=== PATIENT | female | born 1980 | race Caucasian/White ===

== ENCOUNTER 2024-06-04 14:47 | Inpatient (IN) | payer OTHER, SELFPAY ==
[2024-06-04 10:42] VITALS: BP 111/76
[2024-06-04 11:10] LABS: Urine Albumin 2+ (Neg - Trace); Urine Bilirubin Negative (Negative); Urine Character Very Cloudy (Clear); Urine Color Yellow; Urine Glucose Negative (Negative); Urine Ketone 3+ (Negative); Urine Leukocyte 2+ (Negative); Urine Nitrite Positive (Negative); Urine Occult Blood 3+ (Negative); Urine Specific Gravity 1.025 (<1.030); Urine Urobilinogen Negative (Neg - 1+)
[2024-06-04 11:12] LABS: % Basophils 0.4 % (0-2); % Eosinophils 0.2 % (0-6); % Immature Granulocytes 0.5 % (0-0.5); % Lymphocytes 3.7 % (20.5-51.1); % Monocytes 4.4 % (1.7-9.3); % Neutrophils 90.8 % (42.2-75.2); Absolute Basophils 0.1 10^3/uL (0-0.2); Absolute Immature Granulocytes 0.1 10^3/uL (0-0.05); Absolute Lymphocytes 0.7 10^3/uL (1.2-3.4); Absolute Monocytes 0.8 10^3/uL (0.1-0.6); Absolute Neutrophils 17.5 10^3/uL (1.4-6.5); Hematocrit 40.6 % (37.0-47.0); Hemoglobin 13.5 g/dL (12.0-16.0); Mean Corp Hgb Conc. 33.3 g/dL (33.0-37.0); Mean Corpuscular Hgb 30.7 pg (27.0-31.0); Mean Corpuscular Volume 92.3 fL (81.0-99.0); Mean Platelet Volume 9.7 fL (7.4-10.4); Nucleated Red Blood Cells % 0 %; Platelet Count 286 10^3/uL (130-400); Red Cell Dist. Width 12.8 % (11.5-14.5); White Blood Cell Count 19.2 10^3/uL (4.8-10.8)
[2024-06-04 11:19] LABS: Urine Squamous Cell 0-2 /LPF (Few)
[2024-06-04 11:20] LABS: Urine Bacteria Moderate (Negative); Urine White Cell 50-60 /HPF (0-5)
[2024-06-04 11:21] LABS: Urine Mucus Moderate
[2024-06-04 11:23] LABS: ALT (SGPT) 13 U/L (0-35); AST (SGOT) 18 U/L (14-36); Albumin 4.4 g/dl (3.5-5.0); Alkaline Phosphatase 73 U/L (38-126); Blood Urea Nitrogen 9 mg/dl (7-17); Carbon Dioxide 22 mmol/L (22-30); Chloride 99 mmol/L (98-107); Glucose 108 mg/dl (70-99); Lipase 25 U/L (23-300); Potassium 3.7 mmol/L (3.5-5.1); Sodium 134 mmol/L (135-145); Total Bilirubin 0.7 mg/dl (0.2-1.3); Total Protein 7.2 g/dl (6.3-8.2); eGFR > 60.00
--- NOTE | 2024-06-04 11:37 | ED.GENMED ---
History of Present Illness
General
Chief Complaint: Flank Pain
Time Seen by Provider: 06/04/24 11:05
History of Present Illness
History of Present Illness:
Patient is a 43-year-old woman with history of kidney stones requiring stents, pyelonephritis presenting to the emergency department left-sided flank pain. Patient states that for the past day she has been having left-sided flank pain that is
similar to prior kidney stones. She states that the pain radiates down to her groin. Occasionally gets urinary symptoms at this time denies any dysuria urinary frequency or urgency. She does have some chills but no objective fevers at home. No
nausea vomiting. No diarrhea.
Past History
Past History
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
ED Past Surgical History: None and Urological (Left renal stent 08/2018)
Social History
Tobacco: Smoker (05/17 PPD)
Alcohol: Occasional
Drug: None
Living: with family
Employment: Employed
Family History
Family History: Other (Family history of breast cancer, coronary disease and kidney problems)
Phy Exam
Physical Exam
Physical Exam:
GENERAL: in no acute distress
HEENT: normocephalic, extraocular movements intact, moist oral mucosa
NECK: normal inspection
RESPIRATORY: no respiratory distress, clear to auscultation bilaterally
CARDIOVASCULAR: regular rate and rhythm
ABDOMEN/: soft, non-distended, non-tender to palpation, no rebound or guarding, left-sided CVA tenderness
EXTREMITIES: non-tender, no edema/swelling
NEUROLOGIC: awake and alert, moves all extremities
SKIN: warm
Course
Orders/Labs/Results
Orders:
Orders
06/04/24 11:01
Comprehensive Metabolic Panel Urgent
Lipase Urgent
06/04/24 11:02
Complete Blood Count/With Diff Urgent
06/04/24 11:03
Urinalysis Reflex To Culture Urgent
Date Specimen was Collected: 06/04/24
Time Specimen was Collected: 11:01
Urine Microscopic Reflex Cult Urgent
Urine Culture Urgent
JAMIE Source: U
Specimen Description:
Obtained by: Random
Date Specimen was Collected: 06/04/24
Time Specimen was Collected: 11:01
06/04/24 11:05
CT Abd/pel Without Iv Or Oral Urgent
Comment:
Reason For Exam: flank pain, kidney stone
06/04/24 11:09
Test Result ONCE
06/04/24 11:34
Ketorolac [Toradol] 15 mg IM NOW STA
06/04/24 11:36
CefTRIAXone [Rocephin] 1,000 mg IV NOW STA
06/04/24 11:37
Ketorolac [Toradol] 15 mg IV NOW STA
Lactated Ringers [Lr] 1,000 ml IV BOLUS
06/04/24 11:47
Sterile Water [Sterile Water For Injection] 20 ml .ROUTE .STK-MED
06/04/24 12:00
HCG, Serum Qualitative Screen Urgent
06/04/24 13:08
HYDROmorphone [Dilaudid] 0.25 mg IV NOW STA
06/04/24 13:15
Blood Culture Q30M
JAMIE Source: Blood/Venous
Specimen Description:
06/04/24 13:45
Blood Culture Q30M
JAMIE Source: Blood/Venous
Specimen Description:
Abnormal Lab Results
06/04/24 06/04/24 06/04/24
11:01 11:02 11:03
WBC 19.2 H 10^3/uL
(4.8-10.8)
Abs Immat Gran (auto) 0.1 H 10^3/uL
(0-0.05)
Absolute Neuts (auto) 17.5 H 10^3/uL
(1.4-6.5)
Absolute Lymphs (auto) 0.7 L 10^3/uL
(1.2-3.4)
Absolute Monos (auto) 0.8 H 10^3/uL
(0.1-0.6)
Neutrophils % 90.8 H %
(42.2-75.2)
Lymphocytes % 3.7 L %
(20.5-51.1)
Sodium 134 L mmol/L
(135-145)
Glucose 108 H mg/dl
(70-99)
Urine Ketones 3+ A
(Negative)
Ur Occult Blood Reflex 3+ A
(Negative)
Urine Nitrite (Reflex) Positive A
(Negative)
Leukocyte Esterase Rfl 2+ A
(Negative)
Urine RBC 11-15 A /HPF
(0-2)
Urine WBC (Reflex) 50-60 A /HPF
(0-5)
Urine Bacteria (Reflex) Moderate A
(Negative)
Urine Albumin (Reflex) 2+ A
(Neg - Trace)
06/04/24 11:02
06/04/24 11:01
Vital Signs
Initial and Last Documented VS:
Initial Vital Signs
Temp Pulse Resp BP Pulse Ox
97.3 F 97 16 111/76 100
06/04/24 10:42 06/04/24 10:42 06/04/24 10:42 06/04/24 10:42 06/04/24 10:42
Last Documented Vital Signs
Temp Pulse Resp BP Pulse Ox
98 F 90 16 106/61 100
06/04/24 13:15 06/04/24 13:15 06/04/24 13:15 06/04/24 13:15 06/04/24 13:15
MDM/Problems Addressed
Differential Diagnosis Includes:
Patient is a 43-year-old woman with history of kidney stones presenting to the emergency department left-sided flank pain. On arrival patient is afebrile. Exam does show left-sided CVA tenderness. Differential for this is pyelonephritis versus
kidney stone. Will proceed with blood work urine and CT scan. Will give Toradol.
*Critical Care Note
Total Time (30-74mins, 75-104mins- exclusive of procedures): Not Applicable
Update Note
Update Note:
Patient does have leukocytosis. Urine is infected. Will give IV ceftriaxone as she is sensitive to that per prior cultures. Will give a fluid bolus.
On reevaluation patient states that she still having ongoing pain. Will give Dilaudid. CT scan per my interpretation with bilateral kidney stones. Per the official read they are nonobstructing. I did notify urology and discussed with hospitalist
who excepted patient for admission.
ED Attending Note
-
Portions of this chart may have been created with voice recognition software.� Occasional wrong word or��sound alike� substitutions may have occurred due to the inherent limitations of voice recognition software.
Discharge Plan
Departure
Patient Disposition: Admit
Date of Disposition: 06/04/24
Time of Disposition: 13:22
Presentation/result/management discussed w/ accepting MD/DO: Hospitalist
Discharge Problem:
Pyelonephritis, Kidney stone
Prescriptions:
No Action
acetaminophen [Tylenol Extra Strength] 500 MG tablet
1,000 mg PO Q6HPRN PRN (Reason: mild pain)
cranberry fruit 400 MG capsule
400 mg PO DAILY
ibuprofen 400 MG tablet
400 mg PO Q6HPRN PRN (Reason: flank pain) Qty: 1 0RF
amoxicillin-pot clavulanate 1 TABLET tablet
1 tab PO Q12 Qty: 20 0RF
Referrals:
NONE,* [Family Provider] -
Interventions
Interventions:
*Risk Screen - Suicide Last Done: 06/04/24 12:07
*General Assessment Last Done: 06/04/24 12:07
*Neglect/Abuse Screening Last Done: 06/04/24 12:07
*ED COVID-19 Vaccine History Last Done: 06/04/24 12:07
PQ-Gscmxj-Vcjgnryrgj Assessment Last Done: 06/04/24 12:07
ED-Female Genitourinary Assessment Last Done: 06/04/24 12:07
Discharge Date and Time
Print Language: DANISH
[2024-06-04] MEDS: ROCEPHIN 1000 MG IV (12:00)
[2024-06-04] MEDS: TORADOL 15 MG IV (12:00)
[2024-06-04] MEDS: LR 1000 IV (12:01)
[2024-06-04 12:21] LABS: HCG, Serum Qualitative Screen Negative
[2024-06-04] MEDS: DILAUDID 0.25 MG IV (13:13)
[2024-06-04 13:15] VITALS: BP 106/61; BMI 18.8
--- NOTE | 2024-06-04 14:31 | HPS.HSE ---
Family Physician
-
Family Physician: * NONE
Chief Complaint
-
Left flank pain and chills.
History of Present Illness
Patient is a 43 years old female with prior history of complicated UTI and left sided staghorn colliculi which was removed in 2019 presents to the emergency room with few days of onset of a left inguinal pain with later developing left flank pain
and chills. Patient reports symptoms for about 3 days prior to presentation. She denies any documented fever at home. Given her prior history of complicated UTI and staghorn colliculi in the left she presented to the emergency room for further
evaluation.
Medical History
Past Medical History
Past Medical History: Reports Other (Complicated UTI with left-sided staghorn colliculi)
Past Surgical History: Reports Other (1. Left percutaneous nephrolithotomy (> 2.0 cm). 2. Left ureteral stent placement (6-Mauritanian x 24 cm JJ). 3. Left nephrostomy tube placement. 4. Left antegrade nephrostogram. 5. Left flexible nephroscopy.)
Social History
Tobacco: Former Smoker
Alcohol: Occasional
Drug: None
Living: With Family
Employment: Employed
Family History
Family History: Not pertinent
Allergies / Home Medications
Allergies reflects when Allergies were last updated in [facility].
Home Medications with original date entered in [facility]
Allergy/Medication List:
Allergies
Allergy/AdvReac Type Severity Reaction Status Date / Time
No Known Allergies Allergy Verified 12/17/20 10:02
Home Medications
cranberry fruit 450 mg tablet (cranberry) 450 mg PO DAILY 06/04/24
fluoxetine 10 mg capsule (Prozac) 10 mg PO TID 06/04/24
naproxen sodium 220 mg tablet (Aleve) 220 mg PO BIDPRN PRN mild pain 06/04/24
norethindrone 1 mg-ethinyl estradiol 20 mcg ()-iron 75 mg (7) tablet (Junel FE 06/04 (28)) 1 tab PO DAILY 06/04/24
therapeutic multivitamin 1 tab PO DAILY 06/04/24
Review of Systems
-
A 12 point ROS was completed and negative except as noted: Yes
: Reports See HPI
Physical Exam
Vital Signs
Vital Signs
Temp Pulse Resp BP Pulse Ox
98 F 90 16 106/61 100
06/04/24 13:15 06/04/24 13:15 06/04/24 13:15 06/04/24 13:15 06/04/24 13:15
Physical Exam
General: Well Developed, Well Nourished and No Apparent Distress
HEENT: NormoCephalic, Moist mucous membranes and Atraumatic
Respiratory: Clear
Cardiac: S1/S2 and Regular Rhythm; No Murmur or Rub
GI: Soft, Non Tender, Non Distended and Normal Bowel Sounds; No Organomegaly
Rectal: Deferred by Provider
Musculoskeletal: No Clubbing, No Cyanosis and No Edema
Skin: No Rash
Neuro: Nonfocal/grossly intact
Laboratory Results
-
06/04/24 11:02
06/04/24 11:01
Laboratory Results
Total Bilirubin 0.7 mg/dl (0.2-1.3) 06/04/24 11:01
AST 18 U/L (14-36) 06/04/24 11:01
ALT 13 U/L (0-35) 06/04/24 11:01
Alkaline Phosphatase 73 U/L (38-126) 06/04/24 11:01
Lipase 25 U/L (23-300) 06/04/24 11:01
Impression/Plan
-
IMPRESSION:
Complicated UTI, left pyelonephritis
Bilateral nonobstructive renal colliculi.
History of prior UTI with E. coli and staghorn colliculi status post partial staghorn colliculi removal in 2019
PLAN:
Urology consultation. Preliminary discussion and assessment by urology: With no indication for urgent intervention.
Continue IV antibiotics and IV hydration
Follow blood cultures and urine cultures.
--- NOTE | 2024-06-04 16:42 | PTCARENOTE ---
Pt arrived to unit via stretcher and ambulated to bed on 3W. Assessment and admission complete. Pt. oriented to unit, VSS, and states no further needs at this time.
[2024-06-04 17:18] VITALS: BP 102/68
[2024-06-04] MEDS: NSS 1000 IV (17:30)
[2024-06-04] MEDS: TYLENOL 650 MG PO (17:30)
[2024-06-04] MEDS: MORPHINE SULFATE 2 MG IV ×2 (17:31→22:30)
[2024-06-04] MEDS: PROZAC 10 MG PO ×2 (17:54→21:08)
[2024-06-04] MEDS: HEPARIN 5000 UNITS SC (21:08)
[2024-06-04 23:00] VITALS: BP 97/61
[2024-06-05] MEDS: TYLENOL 650 MG PO ×2 (00:34→12:06)
[2024-06-05] MEDS: NSS 1000 IV ×3 (02:50→22:31)
[2024-06-05 05:35] VITALS: BP 100/62
[2024-06-05] MEDS: TORADOL 15 MG IV ×2 (05:38→19:33)
[2024-06-05 07:23] VITALS: BP 108/53
--- NOTE | 2024-06-05 07:40 | W.PN.UPDATE ---
Addendum entered and electronically signed by Rayo Barney MD 06/05/24 12:29:
Discussed urologic plan of care w/ pt this afternoon.
Non-obstructing large volume left renal stones which will require surgical management in the near future.
Will need clearance of current cUTI and suspected left pyelonephritis.
UCx => >100k E. Coli
WBC downtrending 19 => 12
Cr WNL
Will coordinate outpatient F/U at time of discharge.
Original Note:
Update Note
Progress Note Update
43F w/ prior urologic history significant for recurrent nephrolithiasis and emphysematous pyelonephritis presents to ED w/ chills and left flank pain w/ radiation to left groin.
Denies subjective fevers at home.
Febrile in ED.
Long-standing h/o recurrent stone disease since her 20s (stone passage).
08/2018: s/p left PCNL ([facility]).
Unfortunately patient did not maintain Urology F/U.
No interim stone passage episodes or apparent UTIs since 2018.
CTAP w/o IV contrast => bilateral non-obstructing stone burden (significant left upper and lower pole stones), no hydronephrosis/fluid collections/abscesses bilaterally.
UA => +nitrites/WBCs/RBCs.
WBC 19.2
Cr WNL
UCx/BCx pending
A/P:
Suspected left pyelonephritis
Non-obstructing bilateral renal stones
- No indication for surgical intervention in absence of obstructive uropathy (serologic/radiographic)
- Will require close outpatient F/U to discuss stone surgery
- IV antibiotics pending Cx S/S
D/w Hospitalist.
[2024-06-05] MEDS: PROZAC 10 MG PO ×3 (08:19→21:47)
[2024-06-05] MEDS: THERAGRAN 1 TABLET PO (08:19)
[2024-06-05] MEDS: HEPARIN 5000 UNITS SC ×2 (08:19→21:47)
[2024-06-05] MEDS: MORPHINE SULFATE 2 MG IV ×2 (09:05→15:59)
[2024-06-05 09:46] LABS: % Basophils 0.3 % (0-2); % Eosinophils 0.8 % (0-6); % Immature Granulocytes 0.5 % (0-0.5); % Lymphocytes 7.2 % (20.5-51.1); % Monocytes 8.7 % (1.7-9.3); % Neutrophils 82.5 % (42.2-75.2); Absolute Eosinophils 0.1 10^3/uL (0-0.7); Absolute Immature Granulocytes 0.1 10^3/uL (0-0.05); Absolute Lymphocytes 0.9 10^3/uL (1.2-3.4); Absolute Monocytes 1.1 10^3/uL (0.1-0.6); Absolute Neutrophils 10.1 10^3/uL (1.4-6.5); Hematocrit 30.4 % (37.0-47.0); Hemoglobin 10.2 g/dL (12.0-16.0); Mean Corp Hgb Conc. 33.6 g/dL (33.0-37.0); Mean Corpuscular Volume 92.4 fL (81.0-99.0); Mean Platelet Volume 10.3 fL (7.4-10.4); Nucleated Red Blood Cells % 0 %; Platelet Count 212 10^3/uL (130-400); Red Blood Cell Count 3.29 10^6/uL (4.20-5.40); Red Cell Dist. Width 12.8 % (11.5-14.5); White Blood Cell Count 12.2 10^3/uL (4.8-10.8)
[2024-06-05 10:00] LABS: Blood Urea Nitrogen 6 mg/dl (7-17); Calcium 8.1 mg/dl (8.4-10.2); Carbon Dioxide 23 mmol/L (22-30); Chloride 102 mmol/L (98-107); Estimated Creatinine Clearance 103 ml/min; Glucose 134 mg/dl (70-99); Potassium 3.8 mmol/L (3.5-5.1); Sodium 134 mmol/L (135-145); eGFR > 60.00
[2024-06-05] MEDS: STERILE WATER FOR INJECTION 10 ML IV (11:24)
[2024-06-05] MEDS: ROCEPHIN 1000 MG IV (11:24)
--- NOTE | 2024-06-05 14:00 | W.PN.HOSP.TC ---
Today's Communication/Plan
-
Continue IV antibiotics and hydration.
Currently no indication for urgent urologic intervention.
Plan is for discharge with available final cultures and at least 24 hours afebrile
Assessment / Plan
Assessment / Plan
IMPRESSION:
Complicated UTI, left pyelonephritis
Bilateral nonobstructive renal colliculi.
History of prior UTI with E. coli and staghorn colliculi status post partial staghorn colliculi removal in 2019
PLAN:
Urology consultation. Preliminary discussion and assessment by urology: With no indication for urgent intervention.
Blood cultures negative to date
Urine culture preliminary E. coli
Continue IV antibiotics and IV hydration
Follow blood cultures and urine cultures.
Anticipated Discharge: 24 - 48 hours
Subjective/Interval History
-
Date of Service: June 05, 2024
Objective Data
-
Labs:
Laboratory Results
06/05/24
09:14
WBC 12.2 H
Hgb 10.2 L D
Hct 30.4 L
Plt Count 212 D
Sodium 134 L
Potassium 3.8
Chloride 102
Carbon Dioxide 23
BUN 6 L
Creatinine 0.6
Glucose 134 H
Calcium 8.1 L
Vital Signs:
Vital Signs
Temp Pulse Resp BP Pulse Ox
98.3 F 72 16 108/53 98
06/05/24 07:23 06/05/24 07:23 06/05/24 07:23 06/05/24 07:23 06/05/24 07:23
I&O
06/04/24 06/05/24 06/06/24
06:59 06:59 06:59
Intake Total 960 / 960
Balance 960 / 960
Physical Exam
-
General: Well Developed and No Apparent Distress
HEENT: Normocephalic, Atraumatic and Moist Mucous Membranes
Respiratory: Clear to Auscultation
Cardiac: Regular Rhythm and S1/S2; Negative Murmur, Rub or Gallop
GI: Soft, Nontender, Nondistended and Normal Bowel Sounds; Negative Organomegaly
Rectal: Deferred by Provider
Musculoskeletal: No Clubbing, No Cyanosis and No Edema
Skin: Negative Rash
Neuro: Nonfocal/Grossly Intact
[2024-06-05 15:38] VITALS: BP 100/65
--- NOTE | 2024-06-05 16:17 | CM ---
Met with patient to obtain information for assessment. Patient stated that she lives with her Significant Other in a two story house with 4 steps to enter. She is independent with her ADLs, personal care, dressing and bathing. She can do household
chores, laundry, cook and clean. She drives and can get to her appointments and do all of her own shopping. 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
She denied any DME.
She never had VN services.
Patient has not gone to a SNF.
Patient currently working with [facility] as she has no insurance.
Her pharmacy is, [facility] [place].
She has no family MD.
Patient stated that she feels she will be able to return home when medically cleared and does not anticipate any needs from CM.
Plan: Case management will continue to follow and assist with discharge planning. Home when stable.
[2024-06-05] MEDS: ZOFRAN 4 MG IV (19:32)
[2024-06-05 23:00] VITALS: BP 99/58
--- NOTE | 2024-06-06 02:27 | DOWNTIME ---
There was a [employer] Client Hide Worker Downtime on 06/06/2024 from 0100 to 06/06/2023 at 0205 . Downtime documentation of patient's care, including medication administrations, has been reconciled in the electronic record per guidelines. Refer to the
patient's paper chart under the miscellaneous tab to see printed paper medication records and downtime forms.
[2024-06-06] MEDS: TYLENOL 650 MG PO ×2 (05:35→13:36)
[2024-06-06 05:50] LABS: % Basophils 0.8 % (0-2); % Eosinophils 0.9 % (0-6); % Immature Granulocytes 0.4 % (0-0.5); % Lymphocytes 12.8 % (20.5-51.1); % Monocytes 11.1 % (1.7-9.3); Absolute Basophils 0.1 10^3/uL (0-0.2); Absolute Eosinophils 0.1 10^3/uL (0-0.7); Absolute Lymphocytes 0.9 10^3/uL (1.2-3.4); Absolute Monocytes 0.8 10^3/uL (0.1-0.6); Absolute Neutrophils 5.5 10^3/uL (1.4-6.5); Hemoglobin 9.9 g/dL (12.0-16.0); Mean Corp Hgb Conc. 34.1 g/dL (33.0-37.0); Mean Corpuscular Hgb 30.4 pg (27.0-31.0); Mean Platelet Volume 10.7 fL (7.4-10.4); Nucleated Red Blood Cells % 0 %; Platelet Count 200 10^3/uL (130-400); Red Blood Cell Count 3.26 10^6/uL (4.20-5.40); Red Cell Dist. Width 12.6 % (11.5-14.5); White Blood Cell Count 7.4 10^3/uL (4.8-10.8)
[2024-06-06 06:29] LABS: Blood Urea Nitrogen 4 mg/dl (7-17); Calcium 7.9 mg/dl (8.4-10.2); Carbon Dioxide 19 mmol/L (22-30); Chloride 105 mmol/L (98-107); Estimated Creatinine Clearance 103 ml/min; Glucose 92 mg/dl (70-99); Potassium 3.7 mmol/L (3.5-5.1); Sodium 135 mmol/L (135-145); eGFR > 60.00
[2024-06-06 07:45] VITALS: BP 96/63
[2024-06-06] MEDS: NSS 1000 IV (08:34)
[2024-06-06] MEDS: PROZAC 10 MG PO (08:36)
[2024-06-06] MEDS: THERAGRAN 1 TABLET PO (08:36)
[2024-06-06] MEDS: HEPARIN SC (08:39)
[2024-06-06] MEDS: ROCEPHIN 1000 MG IV (12:07)
[2024-06-06] MEDS: STERILE WATER FOR INJECTION 10 ML IV (12:08)
--- NOTE | 2024-06-06 12:53 | PN.CDI ---
CDI
- -
CDI:
Physician Documentation Request
Admit Date: 06/04/24 14:47
Dear Doctor Amee,
Clinical Indicators:
Patient admitted with complicated UTI and left pyelonephritis.
WBC on admission:
06/04/24
11:02
WBC 19.2 H
Temp on admission:
06/04/24
17:18
Temp 102.1 F H
HR trend on admission:
06/04/24
10:42 06/04/24
13:15 06/04/24
17:18
Pulse 97 90 100
Please clarify which of the following most accurately describes the status of the patient's infection:
Sepsis, POA
- Systemic manifestations of infection, with 2 or more SIRS criteria which include:
- Fever >100.4 degrees F or hypothermia < 96.8 degrees F
- Leukocytosis - WBC > 12,000 or leukopenia - WBC < 4,000 or > 10% bands
- Tachycardia > 90 beats per minute
- Tachypnea - RR > 20 breaths per minute or PaCO2 , 32mmHg
Source: Merck Manual 2013
UTI Only, Without Systemic Illness
Other
Use of terms such as suspected, likely, concern for, or probable (associated with a specific diagnosis that is being evaluated, monitored, or treated as if it exists) are acceptable and can be coded in the inpatient setting, when documented at the
time of discharge.
Thank you,
Yady Morgan RN BSN
CDI Specialist
available via tiger text
Please use your independent medical judgment in providing your response.
[2024-06-06] MEDS: ASPIRIN 325 MG PO (13:36)
--- NOTE | 2024-06-06 13:53 | W.DS.TRANS ---
DC Summary - Channel Manager
-
Discharge Instructions:
Discharge Diagnosis/Procedures UTI
Bilateral nephrolithiasis
Diet Regular
Instructions:
Stand-Alone Forms:
Changes to Home Medications: Yes
Discharge Medications:
DC Medications w/original date entered in [employer]
cranberry fruit 450 mg tablet (cranberry) 450 mg PO DAILY 06/04/24
fluoxetine 10 mg capsule (Prozac) 10 mg PO TID 06/04/24
norethindrone 1 mg-ethinyl estradiol 20 mcg (21)-iron 75 mg (7) tablet (Junel FE 06/04 ()) 1 tab PO DAILY 06/04/24
therapeutic multivitamin 1 tab PO DAILY 06/04/24
cephalexin 500 mg capsule 500 mg PO QID #20 caps 06/06/24
Home Medication Changes
Antibiotics to complete total of 7 days of treatment.
Pending Results: No
[2024-06-06 14:10] VITALS: BP 145/86
--- NOTE | 2024-06-06 14:31 | CM ---
Md entered order for discharge.
Family to drive home.
[facility] saw pt.
PLAN Home no needs
== END 2024-06-06 14:23 | disposition home or self-care (01) | DRG 690 ==
LOC: 3 WEST ACU 14:47
PROVIDERS: ADMITTING PHYSICIAN Internal Medicine; EMERGENCY PHYSICIAN Student in an Organized Health Care Education/Training Program
DX: N12 Tubulo-interstitial nephritis, not specified as acute or chronic (principal); Z87.440 Personal history of urinary (tract) infections; Z87.442 Personal history of urinary calculi; B96.20 Unspecified Escherichia coli [E. coli] as the cause of diseases classified elsewhere; Z80.3 Family history of malignant neoplasm of breast; N20.0 Calculus of kidney; F17.210 Nicotine dependence, cigarettes, uncomplicated
CPT/HCPCS: 74176; 80048; 80053; 81003; 81015; 83690; 84703; 85025; 87040; 87077; 87086; 87186; 96361; 96374; 96375; 99285

== ENCOUNTER 2024-07-01 16:55 | Inpatient (IN) | payer OTHER, SELFPAY ==
[2024-07-01 12:05] VITALS: BP 112/81
[2024-07-01 13:06] LABS: % Basophils 0.4 % (0-2); % Immature Granulocytes 0.4 % (0-0.5); % Lymphocytes 2.9 % (20.5-51.1); % Monocytes 4.3 % (1.7-9.3); Absolute Basophils 0.1 10^3/uL (0-0.2); Absolute Immature Granulocytes 0.1 10^3/uL (0-0.05); Absolute Lymphocytes 0.6 10^3/uL (1.2-3.4); Absolute Monocytes 0.9 10^3/uL (0.1-0.6); Absolute Neutrophils 18.2 10^3/uL (1.4-6.5); Hemoglobin 13.2 g/dL (12.0-16.0); Mean Corpuscular Hgb 30.1 pg (27.0-31.0); Mean Corpuscular Volume 91.1 fL (81.0-99.0); Mean Platelet Volume 9.8 fL (7.4-10.4); Nucleated Red Blood Cells % 0 %; Platelet Count 282 10^3/uL (130-400); Red Blood Cell Count 4.39 10^6/uL (4.20-5.40); White Blood Cell Count 19.8 10^3/uL (4.8-10.8)
--- NOTE | 2024-07-01 13:08 | ED.GENMED ---
History of Present Illness
General
Chief Complaint: Flank Pain
Time Seen by Provider: 07/01/24 12:51
History of Present Illness
History of Present Illness:
43-year-old female presents to the emergency department for evaluation of left flank pain as well as chills and vomiting. She was admitted to this hospital just over 3 weeks ago due to pyelonephritis, is known to have large nonobstructing left
renal stones. Urine culture from that visit was positive for pansensitive E. coli. Pain is comparable to previous visit. No diarrhea or dysuria
Past History
Past History
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
ED Past Surgical History: None and Urological (Left renal stent 08/2018)
Social History
Tobacco: Smoker (05/17 PPD)
Alcohol: Occasional
Drug: None
Living: with family
Employment: Employed
Family History
Family History: Other (Family history of breast cancer, coronary disease and kidney problems)
Review of Systems
Review of Systems
Allergies reviewed?: Yes
All Other Systems: ROS reviewed and negative except as documented in HPI and ROS
Phy Exam
Physical Exam
Physical Exam:
GEN: Well appearing, NAD, WDWN
HEENT: Oral mucosa moist, no scleral icterus
Cardiac: Regular rate and rhythm, no murmur
Lung: No respiratory distress, no tachypnea
Abdomen: Soft, nontender, positive left CVA tenderness
MSK: No gross deformity or injuries
Skin: Good color, no pallor or jaundice, no rashes
Neuro: AO x3, moves all extremities freely
Psych: Calm, cooperative
Course
Orders/Labs/Results
Orders:
Orders
07/01/24 12:42
Test Result ONCE
07/01/24 13:00
Complete Blood Count/With Diff Urgent
Comprehensive Metabolic Panel Urgent
HCG, Serum Qualitative Screen Urgent
Urinalysis Reflex To Culture Urgent
Date Specimen was Collected: 07/01/24
Time Specimen was Collected: 12:42
Urine Microscopic Reflex Cult Urgent
Urine Culture Urgent
JAMIE Source: U
Specimen Description:
Date Specimen was Collected: 07/01/24
Time Specimen was Collected: 12:42
07/01/24 13:07
0.9% Sodium Chloride 1000 ml [Nss] 1,000 ml IV BOLUS
Ketorolac [Toradol] 15 mg IV NOW STA
Ondansetron Injectable [Zofran] 4 mg IV NOW STA
07/01/24 13:08
CT Abd/pel Without Iv Or Oral Urgent
Comment:
Reason For Exam: L flank pain
07/01/24 13:23
CefTRIAXone [Rocephin] 1,000 mg IV NOW STA
07/01/24 13:33
Lactic Acid Urgent
Blood Culture Q30M
JAMIE Source: Blood/Venous
Specimen Description:
Blood Culture Q30M
JAMIE Source: Blood/Venous
Specimen Description:
Abnormal Lab Results
07/01/24
13:00
WBC 19.8 H 10^3/uL
(4.8-10.8)
Abs Immat Gran (auto) 0.1 H 10^3/uL
(0-0.05)
Absolute Neuts (auto) 18.2 H 10^3/uL
(1.4-6.5)
Absolute Lymphs (auto) 0.6 L 10^3/uL
(1.2-3.4)
Absolute Monos (auto) 0.9 H 10^3/uL
(0.1-0.6)
Neutrophils % 92.0 H %
(42.2-75.2)
Lymphocytes % 2.9 L %
(20.5-51.1)
Sodium 132 L mmol/L
(135-145)
Chloride 94 L mmol/L
(98-107)
Glucose 126 H mg/dl
(70-99)
Albumin 5.2 H g/dl
(3.5-5.0)
Urine Ketones 3+ A
(Negative)
Ur Occult Blood Reflex 4+ A
(Negative)
Urine Nitrite (Reflex) Positive A
(Negative)
Leukocyte Esterase Rfl 3+ A
(Negative)
Urine RBC >100 A /HPF
(0-2)
Urine WBC (Reflex) >100 A /HPF
(0-5)
Urine Bacteria (Reflex) Many A
(Negative)
Urine Albumin (Reflex) 3+ A
(Neg - Trace)
07/01/24 13:00
07/01/24 13:00
Vital Signs
Initial and Last Documented VS:
Initial Vital Signs
Temp Pulse Resp BP Pulse Ox
98.3 F 94 16 112/81 98
07/01/24 12:05 07/01/24 12:05 07/01/24 12:05 07/01/24 12:05 07/01/24 12:05
Last Documented Vital Signs
Temp Pulse Resp BP Pulse Ox
99.3 F 83 16 103/67 99
07/01/24 14:51 07/01/24 14:51 07/01/24 14:51 07/01/24 14:51 07/01/24 14:51
MDM/Problems Addressed
MDM/Problems Addressed:
Recurrent pyelonephritis in the setting of known renal stone disease. Will admit for IV antibiotics, urology made aware for in-house consultation however no indication for urgent intervention At this time
*Critical Care Note
Total Time (30-74mins, 75-104mins- exclusive of procedures): Not Applicable
ED Attending Note
-
Portions of this chart may have been created with voice recognition software.� Occasional wrong word or��sound alike� substitutions may have occurred due to the inherent limitations of voice recognition software.
Discharge Plan
Departure
Patient Disposition: Admit
Date of Disposition: 07/01/24
Time of Disposition: 15:27
Presentation/result/management discussed w/ accepting MD/DO: Hospitalist
Discharge Problem:
Acute pyelonephritis, Bilateral renal stones
Prescriptions:
No Action
norethindrone-e.estradiol-iron [Junel FE 06/04 (28)] 1 mg-20 mcg (21)/75 mg (7) Tablet
1 tab PO DAILY
fluoxetine [Prozac] 10 mg Capsule
10 mg PO TID
cranberry 450 mg Tablet
450 mg PO BID
Theragen Tablet
1 tab PO DAILY
acetaminophen 500 mg Tablet
1,000 mg PO Q6HPRN PRN (Reason: headache)
ascorbic acid (vitamin C) [Vitamin C] 500 mg Tablet
500 mg PO DAILY
Excedrin Migraine 250-250-65 mg Tablet
1 tab PO DAILYPRN PRN (Reason: migraine)
Referrals:
UNKNOWN - PT DOES,NOT KNOW [Family Provider] -
Interventions
Interventions:
*Risk Screen - Suicide Last Done: 07/01/24 12:05
*General Assessment Last Done: 07/01/24 13:44
*Neglect/Abuse Screening Last Done: 07/01/24 12:05
ED- Fall Risk Assessment Last Done: 07/01/24 13:50
*ED COVID-19 Vaccine History Last Done: 07/01/24 13:44
BI-Thcvgk-Kaiwbgqpsc Assessment Last Done: 07/01/24 13:50
ED-Female Genitourinary Assessment Last Done: 07/01/24 13:50
Discharge Date and Time
Print Language: BELARUSIAN
[2024-07-01 13:13] LABS: Urine Albumin 3+ (Neg - Trace); Urine Bilirubin Negative (Negative); Urine Character Cloudy (Clear); Urine Color Yellow; Urine Glucose Negative (Negative); Urine Ketone 3+ (Negative); Urine Leukocyte 3+ (Negative); Urine Nitrite Positive (Negative); Urine Occult Blood 4+ (Negative); Urine Urobilinogen Negative (Neg - 1+)
[2024-07-01 13:17] LABS: HCG, Serum Qualitative Screen Negative
[2024-07-01 13:24] LABS: Urine Bacteria Many (Negative); Urine Red Blood Cell >100 /HPF (0-2); Urine White Cell >100 /HPF (0-5)
[2024-07-01 13:27] LABS: AST (SGOT) 28 U/L (14-36); Albumin 5.2 g/dl (3.5-5.0); Alkaline Phosphatase 64 U/L (38-126); Blood Urea Nitrogen 10 mg/dl (7-17); Calcium 9.8 mg/dl (8.4-10.2); Carbon Dioxide 23 mmol/L (22-30); Chloride 94 mmol/L (98-107); Glucose 126 mg/dl (70-99); Sodium 132 mmol/L (135-145); Total Protein 8.2 g/dl (6.3-8.2); eGFR > 60.00
[2024-07-01] MEDS: ZOFRAN 4 MG IV (13:41)
[2024-07-01] MEDS: NSS 1000 IV ×2 (13:41→19:50)
[2024-07-01] MEDS: ROCEPHIN 1000 MG IV (13:41)
[2024-07-01] MEDS: TORADOL 15 MG IV (13:41)
[2024-07-01 13:44] VITALS: BMI 18.5
[2024-07-01 13:46] LABS: ALT (SGPT) < 30 U/L (0-35)
[2024-07-01 14:09] LABS: Lactic Acid 1.8 mmol/L (0.7-2.0)
[2024-07-01 14:51] VITALS: BP 103/67
--- NOTE | 2024-07-01 16:16 | HPS.HSE ---
Family Physician
-
Family Physician: NOT KNOW UNKNOWN - PT DOES
Chief Complaint
-
left flank pain
History of Present Illness
43-year-old female with a past medical history of recurrent UTI, pyelonephritis, and kidney stones presents with a 1 day history of left-sided flank and back pain. Patient was recently admitted from 06/04/2024 to 06/06/2024 for left-sided
pyelonephritis and nonobstructing large volume left renal stones. She was discharged on antibiotics, which she completed on 06/11/2024. She was seen by urology at that time, who recommended outpatient surgical management once left-sided
pyelonephritis has resolved. She reports last night she started having severe left-sided flank pain. This morning, she started having intractable nausea and vomiting. Associated symptoms include low-grade fever. She denies dysuria. No chest
pain, no shortness of breath.
Medical History
Past Medical History
Past Medical History: Reports Other (Complicated UTI with left-sided staghorn colliculi)
Past Surgical History: Reports Other (1. Left percutaneous nephrolithotomy (> 2.0 cm). 2. Left ureteral stent placement (6-Belarusian x 24 cm JJ). 3. Left nephrostomy tube placement. 4. Left antegrade nephrostogram. 5. Left flexible nephroscopy.)
Social History
Tobacco: Former Smoker
Alcohol: Occasional
Drug: None
Living: With Family
Employment: Employed
Family History
Family History: Not pertinent
Allergies / Home Medications
Allergies reflects when Allergies were last updated in [email or web address].
Home Medications with original date entered in [email or web address]
Allergy/Medication List:
Allergies
Allergy/AdvReac Type Severity Reaction Status Date / Time
No Known Allergies Allergy Verified 07/01/24 12:05
Home Medications Table - record
�Medication �Instructions �Recorded �Confirmed
cranberry fruit 450 mg tablet 450 mg PO BID 06/04/24 07/01/24
(cranberry)
fluoxetine 10 mg capsule (Prozac) 10 mg PO TID 06/04/24 07/01/24
norethindrone 1 mg-ethinyl 1 tab PO DAILY 06/04/24 07/01/24
estradiol 20 mcg (21)-iron 75 mg
(7) tablet (June FE 06/04 (28))
acetaminophen 500 mg tablet 1,000 mg PO Q6HPRN PRN headache 07/01/24 07/01/24
ascorbic acid (vitamin C) 500 mg 500 mg PO DAILY 07/01/24 07/01/24
tablet (Vitamin C)
ngcujan-fpntytshijcyu-vbnmvfmp 250 1 tab PO DAILYPRN PRN migraine 07/01/24 07/01/24
mg-250 mg-65 mg tablet (Excedrin
Migraine)
therapeutic multivitamin 1 tab PO DAILY 07/01/24 07/01/24
Review of Systems
-
A 12 point ROS was completed and negative except as noted: Yes
Physical Exam
Vital Signs
Vital Signs
Temp Pulse Resp BP Pulse Ox
99.3 F 83 16 103/67 99
07/01/24 14:51 07/01/24 14:51 07/01/24 14:51 07/01/24 14:51 07/01/24 14:51
Physical Exam
General: No Apparent Distress
HEENT: NormoCephalic, Anicteric, Moist mucous membranes and Atraumatic
Respiratory: Clear
Cardiac: S1/S2 and Regular Rhythm
GI: Soft, Non Distended and Tender (Left flank tenderness)
Genito-urinary: Costovertebral angle tend (Left CVA tenderness, left flank tenderness)
Musculoskeletal: No Clubbing, No Cyanosis and No Edema
Skin: Warm and Dry
Neuro: Awake, Alert and Oriented
Laboratory Results
-
07/01/24 13:00
07/01/24 13:00
Laboratory Results
Lactic Acid 1.8 mmol/L (0.7-2.0) 07/01/24 13:33
Total Bilirubin 1.0 mg/dl (0.2-1.3) 07/01/24 13:00
AST 28 U/L (14-36) 07/01/24 13:00
ALT < 30 U/L (0-35) 07/01/24 13:00
Alkaline Phosphatase 64 U/L (38-126) 07/01/24 13:00
Impression/Plan
-
HPI: 43-year-old female with a past medical history of recurrent UTI, pyelonephritis, and kidney stones presents with a 1 day history of left-sided flank and back pain. Patient was recently admitted from 06/04/2024 to 06/06/2024 for left-sided
pyelonephritis and nonobstructing large volume left renal stones. She was discharged on antibiotics, which she completed on 06/11/2024. She was seen by urology at that time, who recommended outpatient surgical management once left-sided
pyelonephritis has resolved. She reports last night she started having severe left-sided flank pain. This morning, she started having intractable nausea and vomiting. Associated symptoms include low-grade fever. She denies dysuria. No chest
pain, no shortness of breath.
#Acute left-sided pyelonephritis
Continue IV Rocephin, follow-up on urine cultures
Treat with pain meds, supportive care
Trend fever and white count
#Large volume left renal stones
Seen by urology last hospital admission, who recommended outpatient surgical management once her infection resolves
Consult urology
#Hyponatremia
Mild, monitor
#Anxiety/depression
Continue SSRI
DVT prophylaxis�subcu Lovenox
Full code
Total time spent to see the patient on the floor, examine the patient, review data and lab results, discuss treatment plan with patient, nursing staff around 60 minutes.
[2024-07-01] MEDS: DILAUDID 0.5 MG IV (16:48)
[2024-07-01 19:20] VITALS: BP 133/71; BMI 18.9
[2024-07-01] MEDS: TYLENOL 1000 MG PO (19:33)
[2024-07-01] MEDS: LOVENOX 40 MG SC (19:33)
[2024-07-01] MEDS: TORADOL 30 MG IV (21:14)
[2024-07-01] MEDS: PROZAC 10 MG PO (21:18)
[2024-07-01 23:00] VITALS: BP 102/64
[2024-07-02] MEDS: DILAUDID 0.5 MG IV ×4 (02:46→21:35)
[2024-07-02] MEDS: TORADOL 30 MG IV ×2 (05:31→19:52)
[2024-07-02] MEDS: TYLENOL 1000 MG PO (05:31)
[2024-07-02 06:26] LABS: Hematocrit 32.7 % (37.0-47.0); Hemoglobin 10.9 g/dL (12.0-16.0); Mean Corp Hgb Conc. 33.3 g/dL (33.0-37.0); Mean Corpuscular Hgb 30.5 pg (27.0-31.0); Mean Corpuscular Volume 91.6 fL (81.0-99.0); Mean Platelet Volume 10.3 fL (7.4-10.4); Platelet Count 215 10^3/uL (130-400); Red Blood Cell Count 3.57 10^6/uL (4.20-5.40); Red Cell Dist. Width 12.8 % (11.5-14.5); White Blood Cell Count 12.6 10^3/uL (4.8-10.8)
[2024-07-02 06:58] LABS: Blood Urea Nitrogen 10 mg/dl (7-17); Calcium 8.5 mg/dl (8.4-10.2); Carbon Dioxide 19 mmol/L (22-30); Chloride 103 mmol/L (98-107); Estimated Creatinine Clearance 88 ml/min; Glucose 116 mg/dl (70-99); Magnesium 1.9 mg/dl (1.6-2.3); Potassium 3.8 mmol/L (3.5-5.1); Sodium 128 mmol/L (135-145); eGFR > 60.00
[2024-07-02 07:37] VITALS: BP 94/65
[2024-07-02] MEDS: NSS 1000 IV (08:13)
[2024-07-02] MEDS: PROZAC 10 MG PO ×3 (08:14→21:34)
[2024-07-02] MEDS: LR 1000 IV ×2 (09:39→21:34)
--- NOTE | 2024-07-02 12:31 | W.PN.HOSP.TC ---
Today's Communication/Plan
-
Continue IV ceftriaxone and analgesics
Follow urine culture
Urology recommendations appreciated
Trend BMP
Assessment / Plan
Assessment / Plan
#Acute left-sided pyelonephritis
-Complicated urologic history with previous PCN, left-sided double-J stent, staghorn calculi
-Presented with left-sided flank pain; UA with signs of infection; started on IV ceftriaxone after culture
-As of this morning still has some pain though seems improved; some tenderness to left CVA
-Continue with IV ceftriaxone and follow urine culture, trend CBC and temperature curve
-Continue with as needed analgesic regimen
-Urology following, recommendations appreciated
#Large volume left renal stones
-Seen by urology last hospital admission, who recommended outpatient surgical management once her infection resolves
-Consult urology as above
#Hypovolemic hyponatremia
#Mild NAGMA
-Likely hypovolemic with symptoms of left flank pain and reduced oral intake
-Presented with serum sodium 132, down to 128 on morning labs 07/02
-Transition NSS to lactated Ringer's for saline associated NAGMA
-Will encourage oral intake as possible, continue with SSRI for now
-Trend BMP, consider urine studies (Uosm, Kajal) if worsening
#Anxiety/depression
-Continue SSRI
-May consider stopping SSRI if sodium worsens
DVT prophylaxis: subcu Lovenox
Diet: Regular
CODE STATUS: Full code
Anticipated Discharge: > 48 hours
Subjective/Interval History
-
Date of Service: July 02, 2024
Seen and examined at the bedside. No acute events reported overnight. AFVSS as of this morning
White cell count improving. Sodium did worsen from 132-128, bicarb down to 19
She denies any new complaints. States pain in her flank is stable, slightly improved
Objective Data
-
Labs:
Laboratory Results
07/02/24
05:46
WBC 12.6 H
Hgb 10.9 L
Hct 32.7 L
Plt Count 215 D
Sodium 128 L
Potassium 3.8
Chloride 103
Carbon Dioxide 19 L
BUN 10
Creatinine 0.7
Glucose 116 H
Calcium 8.5
Vital Signs:
Vital Signs
Temp Pulse Resp BP Pulse Ox
97.5 F 64 18 94/65 99
07/02/24 07:37 07/02/24 07:37 07/02/24 07:37 07/02/24 07:37 07/02/24 07:37
I&O
07/01/24 07/02/24 07/03/24
06:59 06:59 06:59
Intake Total 1230 / 1230
Balance 1230 / 1230
Review of Systems
-
History Source: Patient
All other systems: Reviewed and negative
Physical Exam
-
General: Well Developed, No Apparent Distress, Conversant and Other (Thin female)
HEENT: Normocephalic, Atraumatic, Moist Mucous Membranes and Anicteric
Respiratory: Clear to Auscultation and Non Labored Respirations
Cardiac: Regular Rhythm and S1/S2; Negative Murmur, Rub or Gallop
GI: Soft, Nontender, Nondistended and Normal Bowel Sounds
Genito-urinary: Costovertebral Angle Tend
Musculoskeletal: No Clubbing, No Cyanosis and No Edema
Skin: Warm, Dry and Normal Turgor; Negative Rash
Neuro: Nonfocal/Grossly Intact; Negative Tremors
Psych: Calm
Data Reviewed
-
Labs: Labs Reviewed by me and Discussed with Patient
--- NOTE | 2024-07-02 12:39 | W.PN.URO.CBU ---
Today's Communication / Plan
-
PLAN PER F=HOSPITALIST IV ABS ANALGESICS
Assessment / Plan
-
IVABS FUTEURE STONE REMOVAL
Diagnosis
-
Date of Service: July 02, 2024
-
Patient Diagnosis:
Post Op Day: LEFT DENDRITRIC ALCULS WITH PYELONEPHRITIS
Subjective
-
N/ PAIN EFT FLANK
Objective
-
Vital Signs
Temp Pulse Resp BP Pulse Ox
97.5 F 64 18 94/65 99
07/02/24 07:37 07/02/24 07:37 07/02/24 07:37 07/02/24 07:37 07/02/24 07:37
Intake and Output
07/01/24 07/02/24 07/03/24
06:59 06:59 06:59
Intake Total 1230 / 1230
Balance 1230 / 1230
Intake:
Oral fluids 480 / 480
IV fluids (Total) 750 / 750
Other:
Number of approximated MODERATE 3
amounts of urine
Laboratory Results
07/02/24 05:46
07/02/24 05:46
Review of Systems
-
Abdomen/GI: Nausea and Vomiting
: Flank Pain
Physical Exam
-
General - well developed, well nourished, nON TOXIC
Chest - clear bilaterally
Abdomen - soft, non-tender, positive bowel sounds, no CVAT, no incisional pain or distention
Genitalia - normal
Rectal - normal
Skin - warm & dry with no rash
Neuro - AOx3, no motor deficits
Extremities - no clubbing, no cyanosis, no edema
Incision - clean, dry
Dressing - clean, dry, intact
Care Review
Data Reviewed
Discussed with: Hospitalist and Nursing
CT Scan: Image Pers Reviewed
[2024-07-02] MEDS: STERILE WATER FOR INJECTION 10 ML IV (13:42)
[2024-07-02] MEDS: ROCEPHIN 1000 MG IV (13:42)
[2024-07-02] MEDS: FLUSH (NSS) 1 FLUSH IV ×2 (13:43→14:37)
[2024-07-02] MEDS: ZOFRAN 4 MG IV ×2 (13:59→21:34)
--- NOTE | 2024-07-02 15:15 | CM ---
CM met with pt bedside
Pt resides with her SO in a 2SH with 4STE, full flight to 2nd floor
Pt is indep with her ADLs, drives+, denies use of DMEs
Pt works part-time
Pt admitted to from 06/04 an 06/06 and was referred to [facility] for [facility]
PCP- none
iMng- Kathrine Cai
Resident clinic info along with [facility] clinic info provided,brochures in dc folder per her request
Pt notes she likely does not have community care coverage through her [place] Access plan, only hospital coverage
Discharge Disposition- home, no needs anticipated
[2024-07-02 15:34] VITALS: BP 100/56
[2024-07-02] MEDS: LOVENOX SC (18:24)
[2024-07-02 19:47] VITALS: BP 96/64
[2024-07-02 21:30] VITALS: BP 104/65
[2024-07-03 03:24] VITALS: BP 111/74
[2024-07-03] MEDS: TORADOL 30 MG IV ×2 (05:38→16:46)
[2024-07-03 06:31] LABS: % Basophils 0.4 % (0-2); % Immature Granulocytes 0.4 % (0-0.5); % Lymphocytes 9.4 % (20.5-51.1); % Monocytes 10.4 % (1.7-9.3); % Neutrophils 78.4 % (42.2-75.2); Absolute Eosinophils 0.1 10^3/uL (0-0.7); Absolute Lymphocytes 0.9 10^3/uL (1.2-3.4); Absolute Neutrophils 7.4 10^3/uL (1.4-6.5); Hematocrit 30.8 % (37.0-47.0); Hemoglobin 10.2 g/dL (12.0-16.0); Mean Corp Hgb Conc. 33.1 g/dL (33.0-37.0); Mean Corpuscular Hgb 30.4 pg (27.0-31.0); Mean Corpuscular Volume 91.7 fL (81.0-99.0); Nucleated Red Blood Cells % 0 %; Platelet Count 186 10^3/uL (130-400); Red Blood Cell Count 3.36 10^6/uL (4.20-5.40); Red Cell Dist. Width 12.8 % (11.5-14.5); White Blood Cell Count 9.4 10^3/uL (4.8-10.8)
[2024-07-03 07:01] LABS: Blood Urea Nitrogen 8 mg/dl (7-17); Calcium 8.5 mg/dl (8.4-10.2); Carbon Dioxide 24 mmol/L (22-30); Chloride 101 mmol/L (98-107); Estimated Creatinine Clearance 103 ml/min; Glucose 104 mg/dl (70-99); Potassium 4.1 mmol/L (3.5-5.1); Sodium 134 mmol/L (135-145); eGFR > 60.00
[2024-07-03 07:39] VITALS: BP 113/70
[2024-07-03] MEDS: PROZAC 10 MG PO ×3 (08:17→21:13)
--- NOTE | 2024-07-03 11:02 | PN.CDI ---
CDI
- -
CDI:
Physician Documentation Request
Admit Date: 07/01/24 16:55
Dear Doctor Wilfred,
Please review the following and provide your response in the progress notes.
Clinical Indicators:
Height: 5'7
Weight: 118 lbs
BMI: 18.5
- 07/02 PN 'Thin female'
If possible, please provide an associated diagnosis related to the abnormal BMI, such as:
Underweight
Cachectic
Other (please specify)
Use of terms such as suspected, likely, concern for, or probable (associated with a specific diagnosis that is being evaluated, monitored, or treated as if it exists) are acceptable and can be coded in the inpatient setting, when documented at the
time of discharge.
Thank you,
Fe Watkins RN
CDI Specialist
Please use your independent medical judgment in providing your response.
--- NOTE | 2024-07-03 11:32 | W.PN.HOSP.TC ---
Addendum entered and electronically signed by Oliverio Hardin DO 07/03/24 17:41:
CDI: Underweight
Original Note:
Today's Communication/Plan
-
Continue IV ceftriaxone and follow urine culture
Follow blood cultures
CBC and temperature curve
Plan for urologic intervention when UTI cleared
Assessment / Plan
Assessment / Plan
#Acute left-sided pyelonephritis
-Complicated urologic history with previous PCN, left-sided double-J stent, staghorn calculi
-Presented with left-sided flank pain; UA with signs of infection; started on IV ceftriaxone after culture
-Urine culture with E. coli, sensitivities pending; blood culture with suspected contaminant
-As of this morning still has some pain though seems improved; some tenderness to left CVA
-Continue with IV ceftriaxone and follow urine culture; trend CBC and temperature curve
-Urology following, recommend endoscopic removal of the stone or percutaneous endoscopic removal of stone once she has cleared her complicated UTI.
#Large volume left renal stones
-Seen by urology last hospital admission, who recommended outpatient surgical management once her infection resolves
-Consult urology as above
#Positive blood culture growth (1/2 bottles)
-Blood culture growing gram-positive cocci in clusters
-Urine culture however growing E. coli
-Suspect blood culture growing contaminant
-Follow-up final results of both cultures, consider repeat if necessary
#Hypovolemic hyponatremia
#Mild NAGMA
-Resolved with lactated Ringer's
#Anxiety/depression
-Continue SSRI
-May consider stopping SSRI if sodium worsens
DVT prophylaxis: subcu Lovenox
Diet: Regular
CODE STATUS: Full code
Anticipated Discharge: 24 - 48 hours
Subjective/Interval History
-
Date of Service: July 03, 2024
Seen and examined at the bedside. No acute events reported overnight. AFVSS on room air this morning
Blood culture preliminary positive in 1/2 tubes for gram-positive cocci, suspect contaminant. Urine culture with E. coli, sensitivities pending
She states that she feels generally well this morning denies new complaints. Flank pain stable to slightly improved
Objective Data
-
Labs:
Laboratory Results
07/03/24
05:32
WBC 9.4
Hgb 10.2 L
Hct 30.8 L
Plt Count 186
Sodium 134 L
Potassium 4.1
Chloride 101
Carbon Dioxide 24
BUN 8
Creatinine 0.6
Glucose 104 H
Calcium 8.5
Vital Signs:
Vital Signs
Temp Pulse Resp BP Pulse Ox
98.1 F 63 12 113/70 99
07/03/24 07:39 07/03/24 07:39 07/03/24 07:39 07/03/24 07:39 07/03/24 07:39
I&O
07/02/24 07/03/24 07/04/24
06:59 06:59 06:59
Intake Total 1230 / 1230 1230 / 1230
Balance 1230 / 1230 1230 / 1230
Review of Systems
-
History Source: Patient
All other systems: Reviewed and negative
Physical Exam
-
General: Well Developed, No Apparent Distress, Comfortable and Other (Thin female)
HEENT: Normocephalic, Atraumatic, Moist Mucous Membranes and Anicteric
Respiratory: Clear to Auscultation and Non Labored Respirations
Cardiac: Regular Rhythm and S1/S2; Negative Murmur, Rub or Gallop
GI: Soft, Nontender, Nondistended and Normal Bowel Sounds
Genito-urinary: Costovertebral Angle Tend (mild, left)
Musculoskeletal: No Clubbing, No Cyanosis and No Edema
Skin: Warm, Dry and Normal Turgor; Negative Rash
Neuro: AO x 3 and Nonfocal/Grossly Intact
Psych: Calm
Data Reviewed
-
Labs: Labs Reviewed by me and Discussed with Patient
[2024-07-03] MEDS: LR 1000 IV (11:45)
[2024-07-03] MEDS: DILAUDID 0.5 MG IV ×2 (11:49→19:51)
[2024-07-03] MEDS: ZOFRAN 4 MG IV ×2 (11:53→19:52)
[2024-07-03] MEDS: FLUSH (NSS) 1 FLUSH IV ×3 (13:14→13:16)
[2024-07-03] MEDS: ROCEPHIN 1000 MG IV (13:15)
[2024-07-03] MEDS: STERILE WATER FOR INJECTION 10 ML IV (13:15)
[2024-07-03 15:50] VITALS: BP 116/62
[2024-07-03] MEDS: LOVENOX SC (16:40)
[2024-07-03 23:00] VITALS: BP 112/67
[2024-07-04] MEDS: DILAUDID 0.5 MG IV ×3 (01:01→13:47)
--- NOTE | 2024-07-04 02:43 | DOWNTIME ---
There was a [employer] Downtime on 07/04/2024 from 0100 to 07/04/2023 at 0235 . Downtime documentation of patient's care, including medication administrations, has been reconciled in the electronic record per guidelines. Refer to the
patient's paper chart under the miscellaneous tab to see printed paper medication records and downtime forms.
[2024-07-04 05:59] LABS: % Basophils 0.5 % (0-2); % Eosinophils 2.6 % (0-6); % Immature Granulocytes 0.4 % (0-0.5); % Lymphocytes 17.6 % (20.5-51.1); % Monocytes 12.6 % (1.7-9.3); % Neutrophils 66.3 % (42.2-75.2); Absolute Eosinophils 0.2 10^3/uL (0-0.7); Absolute Lymphocytes 1.3 10^3/uL (1.2-3.4); Absolute Neutrophils 5.1 10^3/uL (1.4-6.5); Hematocrit 28.8 % (37.0-47.0); Hemoglobin 9.6 g/dL (12.0-16.0); Mean Corp Hgb Conc. 33.3 g/dL (33.0-37.0); Mean Corpuscular Hgb 30.8 pg (27.0-31.0); Mean Corpuscular Volume 92.3 fL (81.0-99.0); Mean Platelet Volume 10.5 fL (7.4-10.4); Nucleated Red Blood Cells % 0 %; Platelet Count 184 10^3/uL (130-400); Red Blood Cell Count 3.12 10^6/uL (4.20-5.40); White Blood Cell Count 7.6 10^3/uL (4.8-10.8)
[2024-07-04 06:13] LABS: Blood Urea Nitrogen 7 mg/dl (7-17); Calcium 8.7 mg/dl (8.4-10.2); Carbon Dioxide 28 mmol/L (22-30); Chloride 102 mmol/L (98-107); Estimated Creatinine Clearance 103 ml/min; Glucose 103 mg/dl (70-99); Potassium 4.3 mmol/L (3.5-5.1); Sodium 137 mmol/L (135-145); eGFR > 60.00
[2024-07-04 07:25] VITALS: BP 103/74
[2024-07-04] MEDS: PROZAC 10 MG PO (07:45)
[2024-07-04] MEDS: ZOFRAN 4 MG IV ×2 (07:50→13:50)
--- NOTE | 2024-07-04 11:02 | CM ---
Patient seen at bedside. Patient states that she is hoping for discharge home today. Patient plan is to follow up with [facility] and she reports that she has information on the clinic. CM will continue to follow for discharge planning needs.
Plan; home with follow up with CLinic
--- NOTE | 2024-07-04 11:28 | W.PN.HOSP.TC ---
Addendum entered and electronically signed by Oliverio Hardin DO 07/04/24 14:48:
35 minutes utilized for discharge planning and preparation, arranging outpatient follow-up and labs
Original Note:
Today's Communication/Plan
-
Transition to cephalexin for 14-day antibiotic regimen
Follow-up OP urology for stone removal after antibiotic course
Follow-up final blood culture result (1/2 bottles, suspect contaminant with Staph epidermidis)
Will provide short course of oxycodone/Toradol for pain
BMP 1 week after discharge
Assessment / Plan
Assessment / Plan
#Acute left-sided pyelonephritis
-Complicated urologic history with previous PCN, left-sided double-J stent, staghorn calculi
-Presented with left-sided flank pain; UA with signs of infection; started on IV ceftriaxone after culture
-Urine culture with E. coli, sensitivities pending; blood culture with suspected contaminant
-As of this morning still has some pain though seems improved; some tenderness to left CVA
-Final urine cultures positive for pansensitive E. coli
-Will transition IV CTX to cephalexin to complete 14 days antibiotic
-Patient to follow-up with Dr. Wright with urology in office for procedure after antibiotic completion
-Procedure planned: Endoscopic stone removal v. percutaneous endoscopic stone removal
#Large volume left renal stones
-Seen by urology last hospital admission, who recommended outpatient surgical management once her infection resolves
-Consult urology as above
#Positive blood culture growth (1/2 bottles)
-Blood culture growing gram-positive cocci in clusters
-Urine culture however growing E. coli
-Suspect blood culture growing contaminant, likely Staph epidermidis
-Will confirm contaminant with lab +/- ID if needed prior to discharge
#Hypovolemic hyponatremia
#Mild NAGMA
-Resolved with lactated Ringer's
#Anxiety/depression
-Continue SSRI
DVT prophylaxis: subcu Lovenox
Diet: Regular
CODE STATUS: Full code
Anticipated Discharge: Today
Subjective/Interval History
-
Date of Service: July 04, 2024
Seen and examined at the bedside. No acute events reported overnight. AFVSS as of this morning
States that she still has intermittent left flank pain though is stable to improving.
She denies any new complaints as of this morning
Objective Data
-
Labs:
Laboratory Results
07/04/24
05:24
WBC 7.6
Hgb 9.6 L
Hct 28.8 L
Plt Count 184
Sodium 137
Potassium 4.3
Chloride 102
Carbon Dioxide 28
BUN 7
Creatinine 0.6
Glucose 103 H
Calcium 8.7
Vital Signs:
Vital Signs
Temp Pulse Resp BP Pulse Ox
98.1 F 66 16 103/74 100
07/04/24 07:25 07/04/24 07:25 07/04/24 07:25 07/04/24 07:25 07/04/24 07:25
I&O
07/03/24 07/04/24 07/05/24
06:59 06:59 06:59
Intake Total 1230 / 1230 1680 / 1680
Balance 1230 / 1230 1680 / 1680
Review of Systems
-
History Source: Patient
All other systems: Reviewed and negative
Physical Exam
-
General: Well Developed, No Apparent Distress, Comfortable and Other (Thin female)
HEENT: Normocephalic, Atraumatic and Moist Mucous Membranes
Respiratory: Clear to Auscultation and Non Labored Respirations
Cardiac: Regular Rhythm and S1/S2; Negative Murmur, Rub or Gallop
GI: Soft, Nontender, Nondistended and Normal Bowel Sounds
Genito-urinary: Costovertebral Angle Tend (Left, mild)
Musculoskeletal: No Clubbing, No Cyanosis and No Edema
Skin: Warm, Dry and Normal Turgor; Negative Rash
Neuro: AO x 3 and Nonfocal/Grossly Intact
Psych: Calm
Data Reviewed
-
Labs: Labs Reviewed by me, Discussed with Physician (Urologist) and Discussed with Patient
[2024-07-04] MEDS: STERILE WATER FOR INJECTION 10 ML IV (13:47)
[2024-07-04] MEDS: ROCEPHIN 1000 MG IV (13:47)
[2024-07-04] MEDS: FLUSH (NSS) 1 FLUSH IV ×2 (13:48→13:49)
[2024-07-04 14:33] VITALS: BP 134/62
--- NOTE | 2024-07-04 14:40 | W.DCSUMMARY ---
Discharge Summary
Discharge Data
Date of Admission: 07/01/24
Date of Discharge: 07/04/24
-
Pending Results: Yes
Additional Pending Results:
Repeat Blood culture x2 -- to confirm contamination on initial cultures (1/4 tubes grew likely S. epidermidis)
Hospital Course
Discharging Physician : Oliverio Hardin DO
Disposition : Home
Principal Discharge diagnosis : Left pyelonephritis, recurrent left ureterolithiasis
Chronic Discharge diagnosis : Recurrent kidney stones, recurrent UTI, staghorn calculi, H/O left PCN, H/O left double-J stent
Hospital Course : 43-year-old female with above history that presented to the hospital with left flank pain. Was recently hospitalized and late May 2024 for left-sided pyelonephritis and nonobstructing large volume left renal stones. Seen by
urology at that time and recommended outpatient surgical management after resolution of pyelonephritis. Completed course of antibiotics on 06/11. Developed severe flank pain on nights of admission which prompted her to come to the ED. Was
associated with intractable nausea and vomiting and low-grade fever. CT A/P without contrast demonstrated stable bilateral renal calculi left-sided greater than right without ureteral calculus, no hydronephrosis or obstructive apathy. Initial
urinalysis floridly positive. Urine culture taken in the ED, started on IV ceftriaxone empirically. Urine culture ultimately positive for pansensitive E. coli. Blood cultures taken and ED also returned positive in 1/4 bottles, anaerobic,
gram-positive cocci in clusters with suspicion for staff epidermidis. Spoke with infectious disease who recommended repeat blood cultures prior to discharge. Repeat blood cultures taken 07/04/2024. Patient clinically improved and remained
hemodynamically stable. Was transition to cephalexin for 14-day course of antibiotics. To follow-up with urologist in office for stone debulking procedure after resolution of pyelonephritis. Provided short course of oxycodone as needed for pain,
5 days at 5 mg every 8 hours as needed for moderate to severe pain. Encouraged Tylenol for mild pain. Encouraged 64 ounce fluid intake and no added salt to diet. Provided prescription for BMP 1 week after discharge and repeat urine culture 7 to
10 days after completion of antibiotic.
Important imaging findings :
CT Abd/pel without Iv Or Oral contrast (07/01/24)
1. Stable bilateral renal calculi, left greater than right. No ureteral calculus. No hydronephrosis or obstructive uropathy.
2. Subtle perinephric soft tissue stranding appears slightly greater on the left than on prior examination. Suggest low grade pyelonephritis in the proper clinical setting.
3. Colonic underdistention. This may contribute to apparent bowel wall thickening. However, pathologic wall thickening suggesting colitis may be considered in the proper clinical setting. No dilated bowel loops or evidence of bowel obstruction.
Procedure findings : No procedures performed
Consults: Bridger Johnson MD, urology
Follow-up: PCP within 1 to 2 weeks of discharge. Urology for stone debulking procedure.
Discharge Plan
-
Patient Disposition: Home (Routine Discharge)
Discharge Diagnosis/Procedures: Left Pyelonephritis
Complicated UTI
Left sided kidney stones without obstruction
Condition: Good
Diet: No added salt
Additional Diets: Drink 64 oz water daily
Activity: No restrictions
Driving Restrictions: As prior to admission
Bathing Restrictions: None
Blood Work: Urine culture 7-10 days after antibiotic completion
BMP 1 week after discharge
Activity Restrictions/Additional Instructions:
Follow up with family doctor within 1-2 weeks of discharge.
Schedule follow-up appointment with Dr. Barney from Urology to schedule procedure after completion of your antibiotics.
Instructions: Kidney stone diet
Referrals:
Rayo Barney MD [Active] - in one week
UNKNOWN - PT DOES,NOT KNOW [Family Provider] -
Additional Discharge Medication Instructions: Continue Keflex 500 mg four times daily (7 am, noon, 5pm, 9pm) for 11 days after discharge (last day 07/12)
Use oxycodone every 8 hours as needed for moderate to severe pain
Use xlaj-kad-jepzplj Tylenol 975 mg every 6 hours as needed for mild pain
Prescriptions:
New
cephalexin 500 mg capsule
500 mg PO QID 11 Days Qty: 44 0RF
oxycodone 5 mg tablet
5 mg PO Q8H PRN (Reason: Moderate to severe pain) 5 Days Qty: 20 0RF
Continued
norethindrone-e.estradiol-iron [Junel FE 06/04 (28)] 1 mg-20 mcg (21)/75 mg (7) Tablet
1 tab PO DAILY
fluoxetine [Prozac] 10 mg Capsule
10 mg PO TID
cranberry 450 mg Tablet
450 mg PO BID
therapeutic multivitamin Tablet
1 tab PO DAILY
acetaminophen 500 mg Tablet
1,000 mg PO Q6HPRN PRN (Reason: headache)
ascorbic acid (vitamin C) [Vitamin C] 500 mg Tablet
500 mg PO DAILY
Excedrin Migraine 250-250-65 mg Tablet
1 tab PO DAILYPRN PRN (Reason: migraine)
Discharge Orders:
Discharge Patient (As Directed); Ordered 07/04/24
Ordered By: Oliverio Hardin
Discharge Date and Time
Print Language: PERSIAN
== END 2024-07-04 15:08 | disposition home or self-care (01) | DRG 690 ==
LOC: 3 WEST ACU 16:55
PROVIDERS: Physician Assistant; ADMITTING PHYSICIAN Family Medicine; ATTENDING PHYSICIAN Internal Medicine; CONSULT PHYSICIAN Specialist; EMERGENCY PHYSICIAN Emergency Medicine
DX: N10 Acute pyelonephritis (principal); E87.1 Hypo-osmolality and hyponatremia; E87.20 Acidosis, unspecified; Z68.1 Body mass index [BMI] 19.9 or less, adult; F17.210 Nicotine dependence, cigarettes, uncomplicated; N20.0 Calculus of kidney; F32.A Depression, unspecified; F41.9 Anxiety disorder, unspecified; R63.6 Underweight; Z79.899 Other long term (current) drug therapy; Z87.440 Personal history of urinary (tract) infections; Z87.442 Personal history of urinary calculi
CPT/HCPCS: 74176; 80048; 80053; 81003; 81015; 83605; 83735; 84703; 85025; 85027; 87040; 87077; 87086; 87147; 87186; 87205; 93005; 96361; 96374; 96375; 99285

== ENCOUNTER → 2024-07-19 13:34 | Outpatient (REF) | payer OTHER, SELFPAY ==
[2024-07-19 15:07] LABS: Blood Urea Nitrogen 14 mg/dl (7-17); Calcium 10.3 mg/dl (8.4-10.2); Carbon Dioxide 27 mmol/L (22-30); Chloride 98 mmol/L (98-107); Glucose 89 mg/dl (70-99); Potassium 4.1 mmol/L (3.5-5.1); Sodium 137 mmol/L (135-145); eGFR > 60.00
== END ==
LOC: REG 13:34
PROVIDERS: ATTENDING PHYSICIAN Internal Medicine; REFERRING PHYSICIAN Surgery
DX: N20.0 Calculus of kidney (principal)
CPT/HCPCS: 36415; 80048; 87077; 87086; 87186

== ENCOUNTER → 2024-07-31 16:36 | Outpatient (REF) | payer MEDICAID, SELFPAY | LOC: CLAB 16:36 | PROVIDERS: ATTENDING PHYSICIAN Surgery | DX: N39.0 Urinary tract infection, site not specified (principal) | CPT/HCPCS: 87077; 87086; 87186 ==

== ENCOUNTER 2024-09-03 06:17 | Day surgery (SDC) | payer OTHER, SELFPAY ==
[2024-09-03] VITALS (7 sets, daily range): BP systolic 97–116; BP diastolic 59–73; BMI 18.5
[2024-09-03] MEDS: NORMOSOL-R/PLASMALYTE-A 1000 IV (13:10)
[2024-09-03] MEDS: EMEND 40 MG PO (13:26)
--- NOTE | 2024-09-03 13:40 | W.SUR.PREOP ---
Pre-Operative Surgical Note
-
I have examined this patient prior to the performance of the scheduled procedure.
The patient's condition is unchanged from the time of the current History and
Physical and the patient is able to undergo the scheduled procedure.
To OR for left ULS.
Bactrim DS BID x7 days completed 24 hrs ago.
IV Ancef 2g inspector repairer sandstone to OR.
[2024-09-03] MEDS: ROXICODONE 5 MG PO (16:01)
== END 2024-09-03 16:15 | disposition home or self-care (01) ==
LOC: SDS 06:17
PROVIDERS: ATTENDING PHYSICIAN Surgery
DX: N20.0 Calculus of kidney (principal)
CPT/HCPCS: 52356; 74018; 76000; A4300; C1758; C1769; C1894; C2617

== ENCOUNTER 2024-09-17 06:14 | Day surgery (SDC) | payer OTHER, SELFPAY ==
[2024-09-17] VITALS (7 sets, daily range): BP systolic 106–121; BP diastolic 66–72; BMI 18.9
[2024-09-17] MEDS: NORMOSOL-R/PLASMALYTE-A 1000 IV (09:32)
--- NOTE | 2024-09-17 10:17 | W.SUR.PREOP ---
Pre-Operative Surgical Note
-
I have examined this patient prior to the performance of the scheduled procedure.
The patient's condition is unchanged from the time of the current History and
Physical and the patient is able to undergo the scheduled procedure.
Left laterality marked.
To OR for 2nd stage left ULS.
[2024-09-17] MEDS: Pyridium 200 MG PO ×2 (11:45)
[2024-09-17] MEDS: DETROL LA 2 MG PO (11:59)
[2024-09-17] MEDS: DILAUDID 0.25 MG IV (12:00)
== END 2024-09-17 12:55 | disposition home or self-care (01) ==
LOC: SDS 06:14
PROVIDERS: ATTENDING PHYSICIAN Surgery
DX: N20.0 Calculus of kidney (principal); Z87.440 Personal history of urinary (tract) infections
CPT/HCPCS: 52356; 74018; 76000; C1769; C1894; C2617

== ENCOUNTER → 2024-12-14 10:42 | Outpatient (REF) | payer OTHER, SELFPAY | LOC: REG 10:42 | PROVIDERS: ATTENDING PHYSICIAN Surgery; FAMILY PHYSICIAN Hospitalist | DX: N20.0 Calculus of kidney (principal) | CPT/HCPCS: 82340; 82436; 82507; 83735; 83945; 83986; 84105; 84133; 84300; 84392; 84560 ==

== ENCOUNTER 2025-01-24 06:15 | Day surgery (SDC) | payer OTHER, SELFPAY | END 2025-01-24 08:40 | disposition home or self-care (01) | LOC: GI 06:15 | PROVIDERS: ATTENDING PHYSICIAN Internal Medicine; FAMILY PHYSICIAN Hospitalist | DX: Z12.11 Encounter for screening for malignant neoplasm of colon (principal) | CPT/HCPCS: G0121 ==

== ENCOUNTER 2025-04-14 18:33 | Emergency (ER) | payer OTHER, SELFPAY ==
[2025-04-14 18:41] VITALS: BP 150/83
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
[2025-04-14 23:26] VITALS: BP 113/79
[2025-04-14] MEDS: MOTRIN 600 MG PO (23:34)
== END 2025-04-14 23:36 | disposition home or self-care (01) ==
LOC: EMR 18:33
PROVIDERS: EMERGENCY PHYSICIAN Emergency Medicine; FAMILY PHYSICIAN Hospitalist
DX: M79.632 Pain in left forearm (principal); R07.89 Other chest pain; Y04.0XXA Assault by unarmed brawl or fight, initial encounter; F17.210 Nicotine dependence, cigarettes, uncomplicated; Z80.3 Family history of malignant neoplasm of breast; Z82.49 Family history of ischemic heart disease and other diseases of the circulatory system; Z87.442 Personal history of urinary calculi
CPT/HCPCS: 99284; 70450; 71111; 72125; 73060; 73090